=== PATIENT | female | born 1985 | race Caucasian/White ===

== ENCOUNTER 2021-12-07 11:05 | Day surgery (SDC) | payer MEDICAID ==
[2021-12-06 13:47] LABS: COVID AG,FIA SOURCE NASAL SWAB
[~2021-12-07] VITALS: Ht 162.6 cm; Wt 66.8 kg
[~2021-12-07 11:05] MED LIST: ESCI-8 PO; SODIUM CHLORIDE 0.9% 1,000 ML IV ONE; SODIUM CHLORIDE 0.9% 1,000 ML ONE
[2021-12-07] MEDS ORDERED: LIDOCAINE/PF 2% 5 ML SYRINGE IVP ONE (12:00)
[2021-12-07] MEDS ORDERED: PROPOFOL 1% 20 ML VIAL IVP ONE (12:00)
== END 2021-12-07 13:10 | disposition home or self-care (01) ==
LOC: SURGERY 11:05
PROVIDERS: ATTEND Internal Medicine Gastroenterology
DX: K29.70 Gastritis, unspecified, without bleeding (principal); K21.9 Gastro-esophageal reflux disease without esophagitis; K44.9 Diaphragmatic hernia without obstruction or gangrene; F17.210 Nicotine dependence, cigarettes, uncomplicated; Z83.3 Family history of diabetes mellitus; Z79.899 Other long term (current) drug therapy; Z98.890 Other specified postprocedural states
CPT/HCPCS: 87426; 84703; 43239; 88305; 88312; 88313; C9803; C1769; J2704; J3490; J7030